=== PATIENT | male | born 1965 | race Caucasian/White ===

== ENCOUNTER 2022-05-27 08:16 | Outpatient (CLI) | payer OTHER, SELFPAY | END 2022-05-27 08:17 | disposition home or self-care (01) | LOC: OP CLINIC 08:16 | PROVIDERS: PCP Family Medicine; Visit Provider Surgery | DX: Z12.11 Encounter for screening for malignant neoplasm of colon (principal); K63.5 Polyp of colon; K57.30 Diverticulosis of large intestine without perforation or abscess without bleeding; Z80.0 Family history of malignant neoplasm of digestive organs; Z86.010 Personal history of colon polyps | CPT/HCPCS: 45385; 88305; 99153; J2250; J3010 ==

== ENCOUNTER 2023-01-14 07:13 | Outpatient (CLI) | payer OTHER, SELFPAY | END 2023-01-14 07:14 | disposition home or self-care (01) | LOC: NFLDREF 01-17 10:42 | PROVIDERS: PCP Family Medicine; Referring Provider Family Medicine; Visit Provider Family Medicine | DX: Z00.00 Encounter for general adult medical examination without abnormal findings (principal); E78.5 Hyperlipidemia, unspecified; Z12.5 Encounter for screening for malignant neoplasm of prostate | CPT/HCPCS: 80053; 80061; 84153 ==

== ENCOUNTER 2024-08-09 07:30 | Outpatient (CLI) | payer OTHER, SELFPAY | END 2024-08-09 07:31 | disposition home or self-care (01) | LOC: NFLDREF 08-11 11:32 | PROVIDERS: PCP Family Medicine; Referring Provider Family Medicine; Visit Provider Family Medicine | DX: E78.5 Hyperlipidemia, unspecified (principal) | CPT/HCPCS: 80053; 80061 ==

== ENCOUNTER 2024-08-10 08:56 | Outpatient (CLI) | payer OTHER, SELFPAY | END 2024-08-10 08:57 | disposition home or self-care (01) | PROVIDERS: PCP Family Medicine; Visit Provider Family Medicine | DX: Z00.00 Encounter for general adult medical examination without abnormal findings (principal); E78.5 Hyperlipidemia, unspecified; G62.9 Polyneuropathy, unspecified; R19.7 Diarrhea, unspecified; Z11.59 Encounter for screening for other viral diseases; Z13.1 Encounter for screening for diabetes mellitus; Z13.6 Encounter for screening for cardiovascular disorders | CPT/HCPCS: 82607; 82746; 86803; G0103 ==

== ENCOUNTER 2024-08-13 06:59 | Outpatient (CLI) | payer OTHER, SELFPAY ==
--- NOTE | 2024-08-13 07:15 | CRLHL7_ITS ---
For Patients: As a result of the Century Cures Act, medical imaging exams and procedure reports are released immediately into your electronic medical record. You may view this report before your referring provider. If you have questions, please contact your health care provider. INDICATION: FATTY LIVER COMPARISON: none TECHNIQUE: Real time zacarias scale imaging and color Doppler analysis was performed of the right upper quadrant. FINDINGS: The visualized liver is diffusely echogenic and measures 13.7 cm. The IVC and aorta are not visualized. There is no evidence of ascites. The visualized gallbladder is of normal size and there is no evidence of intraluminal stones or sludge. The gallbladder wall measures 1.8 mm in thickness. The common bile duct is of normal size and measures 5.5 mm in diameter at the level of the filiberto hepatis. The pancreas is not visualized. There is no evidence of a stone or hydronephrosis within the right kidney. Simple cysts right kidney measures 1.6 x 1.4 x 1.7 cm. The right kidney measures 10.8 cm in length. IMPRESSION: Diffuse hepatic steatosis. Incidental right renal cyst. Dictated by Aureliano Vaca MD @ 08/15/2024 10:08:41 PM (Electronically Signed)
== END 2024-08-13 07:00 | disposition home or self-care (01) ==
LOC: US 06:59
PROVIDERS: PCP Family Medicine; Visit Provider Family Medicine
DX: K76.0 Fatty (change of) liver, not elsewhere classified (principal)
CPT/HCPCS: 76705

== ENCOUNTER 2025-07-03 09:27 | Emergency (ER) | payer OTHER, SELFPAY ==
--- OUTSIDE RECORDS SUMMARY | 2025-07-03 09:29 | XMS_ITS | Clinical Summary ---
Author Organization [facility] Address [address] [place] [address]. [place] [address] Care Team Providers Care Behavior Analyst Name Role Phone Clinic, [facility] Primary Care Provider Allergies No known active allergies Medications alum & mag hydroxide-simet hicone (MYLANTA/MAALOX ) 200-200-20 MG/5ML SUSP suspension Take 30 mLs by mouth every 6 hours as needed for indigestion or heartburn 148 mL 7 Active Social History Tobacco Use Types Packs/Day Years Used Date Smoking Tobacco: Never Smokeless Tobacco: Former Alcohol Use Standard Drinks/Week Comments Yes 0 (1 standard drink = 0.6 oz pur e alcohol) rarely Adolescent Education Answer Date Record ed Getting School Help Needed Not on file 08/01 Sex and Gender Information Value Date Recorded Sex Assigned at Not on file Legal Sex Male 12:46 PM CDT Gender Identity Not on file Sexual Orientation Not on file Last Filed Vital Signs Vital Sign Reading Time Taken Comments Blood Pressure 134/89 03/04/2022 6:20 PM CDT Pulse 61 03/04/2022 6:20 PM CDT Temperature 37.2 C (98.9 F) 03/04/2022 2:28 PM CDT Respiratory Rate 15 03/04/2022 6:20 PM CDT Oxygen Saturation 97% 03/04/2022 6:20 PM CDT Inhaled Oxygen Concentration - - Weight 101.4 kg (223 lb 8.7 oz) 03/04/2022 2:28 PM CDT Height 177.8 cm (5' 10) 03/04/2022 2:28 PM CDT Body Mass Index 32.08 03/04/2022 2:28 PM CDT Plan of Treatment Not on file Insurance [employer] Care Teams Behavior Analyst Relationship Specialty Start Date End Date Clinic, [address] [address] PCP - General 05/05/17
[2025-07-03 09:38] VITALS: BP 169/82; PULSE 67; RESP 18; TEMP 36.2; O2SAT 97; BMI 30.1
[2025-07-03 09:53] VITALS: O2SAT 99
--- NOTE | 2025-07-03 09:53 | CRLHL7_ITS ---
For Patients: As a result of the Cures Act, medical imaging exams and procedure reports are released immediately into your electronic medical record. You may view this report before your referring provider. If you have questions, please contact your health care provider. INDICATION: Chest pain. TECHNIQUE: Chest 2 views. COMPARISON: None. FINDINGS: Lungs and pleural spaces: No consolidation. No pleural effusion. No pneumothorax. Cardiovasculature and mediastinum: Heart size and mediastinal contours are normal. IMPRESSION: No acute cardiopulmonary abnormality. Dictated by Lukasz Banegas MD @ 07/03/2025 10:21:02 AM (Electronically Signed)
--- NOTE | 2025-07-03 09:59 | ED_ITS ---
HPI - General Adult General Chief complaint: Chest Pain Stated complaint: chest pain Time Seen by Provider: 07/03/25 09:29 Source: patient Mode of arrival: ambulatory Limitations: no limitations History of Present Illness HPI narrative: 59-year-old male presenting today with chest pain that started approximately 4 hours ago. Pain is located on the right chest. He feels only takes a deep breath. He feels it radiate into the center of his back when he takes a deep inspiration. He does not feel short of breath, dizzy or lightheaded. He did paint a book shelf yesterday. Moving does not really make it worse. He states that he felt chills when he 1st arrived here but that has passed. He has not been coughing. No recent travel or surgeries. He was hoping it would go away but it has persisted. He took an acid and this is not help. He had a bowel movement in this did not help either. Related Data Previous Rx's ?Medication ?Instructions ?Recorded gabapentin 100 mg capsule 200 - 300 mg (2 - 3 x 100 mg ) PO 08/10/24 QHS #270 caps nicotine (polacrilex) 2 mg buccal 2 mg buccal Q8H PRN nicotine 08/10/24 lozenge cravings #81 ea Allergies Allergy/AdvReac Type Severity Reaction Status Date / Time No Known Allergies Allergy Verified 07/03/25 09:38 Review of Systems Status of ROS: Reports: 10 or more systems reviewed and unremarkable except as noted in History and below PFSH PFS Medical History Routine medical exam (10/20/14) ?Z00.00 - Encounter for general adult medical examination without abnormal findings (ICD-10) Nicotine dependence (07/27/13) ?F17.200 - Nicotine dependence, unspecified, uncomplicated (ICD-10) Surgical History History of hernia repair (07/27/13) ?Z98.890 - Other specified postprocedural states (ICD-10) ?Z87.19 - Personal history of other diseases of the digestive system (ICD-10) Family History Mother Acute respiratory failure Coronary artery disease Rheumatoid arthritis Father Colon cancer Social History Narrative: Chewing tobacco use Has 3 children What is your current living situation?: I presently have a place to live Problems where you live: no known problems In the past 12 months, utilities in danger of being shut off: no In past 12 months, lack of transportation kept you from medical appts, meetings, work, or getting things needed for daily living: no In the past 12 mos, have been you worried that your food would run out before you had money to buy more?: never true In the past 12 mos, the food you bought just didn't last and you didn't have money to buy more?: never true Smoking Status: Former smoker Caffeine: Yes How often does anyone, including family, friends and others, physically hurt you : never How often does anyone, including family, friends and others, insult or talk down to you: never How often does anyone, including family, friends and others, threaten you with harm: never How often does anyone, including family, friends and others, scream or curse at you: never Exam Narrative: Exam Narrative: Well-nourished well-developed patient in no acute distress. Alert and oriented. Answers questions appropriately. Mood and affect are appropriate. Thoughts are goal oriented and rational. No tangential or magical thinking noted. Patient speaks in full sentences without needing to catch his breath. Patient is not appear ill or toxic, does not appear uncomfortable. HEENT: Normocephalic atraumatic. Pupils are equally round reactive to light. Extraocular muscles are intact. Conjunctivae are moist without any icterus noted. Moist mucous membranes. Neck is soft without any lymphadenopathy. Cardiovascular: Heart is regular rate and rhythm S1 and S2 are present without any murmurs. Lungs: Clear to auscultation bilaterally no wheezes rhonchi or rales are appreciated. Patient takes deep breaths without any significant discomfort. I cannot reproduce his pain with palpation. Abdomen: Soft and nontender nondistended with normal bowel sounds. Extremities: Bilateral lower extremities are without edema. Normal DP and PT pulses. Skin: Well perfused without any obvious rashes. Const: Vital Signs, click to edit/add: Vital Signs - 24 hr 07/03/25 09:38 Temperature 97.1 F L Pulse Rate [Pulse Oximeter] 67 Respiratory Rate 18 Blood Pressure [Ri t Upper Arm] 169/82 H Pulse Oximetry 97 Oxygen Delivery Me thod Room Air Course Course ED Course: Patient received aspirin. EKG, read by me, shows normal sinus rhythm with a pulse 69. Normal QRS, QTC and NH intervals. Differential diagnosis at this time is very broad and includes chest wall discomfort, acute coronary syndrome, PE, aortic dissection, pleurisy, pneumothorax. Chest x-ray, read by me, does not show any acute pathology. Blood work unremarkable. Repeat cardiac enzymes unchanged, repeat EKG unchanged. CPAP aortic dissection protocol does not reveal any significant abnormalities. Shows an enlarged prostate. Vital Signs Vital signs: Initial Vital Signs Temperature 97.1 F L 07/03/25 09:38 Temperature Source Temporal Artery Scan 07/03/25 09:38 Pulse Rate 67 07/03/25 09:38 Respiratory Rate 18 07/03/25 09:38 Blood Pressure 169/82 H 07/03/25 09:38 Blood Pressure Mean 111 H 07/03/25 09:38 Pulse Oximetry 97 07/03/25 09:38 Oxygen Delivery Method Room Air 07/03/25 09:38 Vital Signs Temperature 97.1 F L 07/03/25 09:38 Pulse Rate 67 07/03/25 09:38 Respiratory Rate 18 07/03/25 09:38 Blood Pressure 169/82 H 07/03/25 09:38 Pulse Oximetry 97 07/03/25 09:38 Oxygen Delivery Method Room Air 07/03/25 09:38 Temperature 97.1 F L 07/03/25 09:38 Pulse Rate 67 07/03/25 09:38 Respiratory Rate 18 07/03/25 09:38 Blood Pressure 169/82 H 07/03/25 09:38 Pulse Oximetry 97 07/03/25 09:38 Oxygen Delivery Method Room Air 07/03/25 09:38 Medications Administered Medications: Discontinued Medications Generic Name Dose Route Start Last Admin Trade Name Freq PRN Reason Stop Dose Admin Aspirin 324 mg 07/03/25 09:53 07/03/25 10:21 Aspirin 81 Mg Tab.Chew PO 07/03/25 09:54 324 mg ONCE ONE Administration Medical Decision Making MDM Narrative Medical decision making narrative: 59-year-old male with atypical chest pain. Symptoms not consistent with acute coronary syndrome. Workup did not reveal any life-threatening etiology including PE, aortic dissection, ACS, pneumothorax, pericarditis. Discuss pleurisy with a potential cause, as well as chest wall pain. Lab Data Lab results reviewed: Yes I reviewed the patient's lab results Labs: Lab Results 07/03/25 07/03/25 07/03/25 Range/Units 09:53 10:03 11:55 WBC 4.89 (4.50-11.00) K/uL RBC 5.31 (4.30-5.90) m/uL Hgb 17.3 (13.5-17.5) gm/dL Hct 51.4 (37.0-53.0) % MCV 97 (80-100) fL MCH 33 (26-34) pg MCHC 34 (32-36) gm/dL RDW Coeff of Felicia 12.6 (11.5-15.5) % Plt Count 165 (140-440) K/uL Neut % (Auto) 73.4 H (42.0-72.0) % Lymph % (Auto) 17.2 L (20-44) % [place] % (Auto) 7.6 (0.0-11.0) % Eos % (Auto) 1.0 (0.0-7.0) % Baso % (Auto) 0.4 (0.0-3.0) % Neut # (Auto) 3.60 (1.7-7.0) K/uL Lymph # (Auto) 0.80 L (0.90-2.90) K/uL [place] # (Auto) 0.40 (0.00-0.90) K/UL Eos # (Auto) 0.05 (0.00-0.50) K/uL Baso # (Auto) 0.02 (0.00-0.30) K/uL Abs Immat Gran (auto) 0.02 (0.00-0.30) K/uL Imm/Tot Granulo (auto) 0.4 % D-Dimer Quant (PE/DVT) < 0.27 (0.00-0.50) ug/ml Sodium 138 (135-149) mmol/L Potassium 4.2 (3.6-5.1) mmol/L Chloride 102 (96-114) mmol/L Carbon Dioxide 30 (20-32) mmol/L Anion Gap 6 L (7-15) mEq/L BUN 14 (7-30) mg/dL Creatinine 1.0 (0.5-1.5) mg/dL Estimated Creat Clear 83.14 Estimated GFR 87 ml/min Glucose 97 (60-115) mg/dL Lactate 1.5 (0.5-1.9) mmol/L Calcium 9.7 (8.4-10.6) mg/dL Total Bilirubin 1.1 (0.1-1.5) mg/dL Direct Bilirubin 0.2 (0.0-0.5) mg/dL AST 31 (12-35) U/L ALT 26 (4-50) U/L Alkaline Phosphatase 66 (40-150) U/L Troponin I < 0.01 (0.01-0.04) ng/mL C-Reactive Protein < 0.5 L (0.5-1.0) mg/dL Total Protein 6.9 (6.0-8.3) g/dL Albumin 4.2 (3.3-5.0) g/dL Lipase 84 (23-300) U/L POC Troponin I 0.00 L 0.00 L (0.01-0.04) ng/ml Imaging Data Chest x-ray: Attestation: I have reviewed the pertinent imaging results. Radiologist's impression: TECHNIQUE: Chest 2 views. COMPARISON: None. FINDINGS: Lungs and pleural spaces: No consolidation. No pleural effusion. No pneumothorax. Cardiovasculature and mediastinum: Heart size and mediastinal contours are normal. IMPRESSION: No acute cardiopulmonary abnormality. CT Chest/Ab/Pelvis: Attestation: I have reviewed the pertinent imaging results. Radiologist's impression: TECHNIQUE: CT chest without contrast and CT chest, abdomen and pelvis acquired with 95 cc Omnipaque 350 IV contrast, dissection protocol. Coronal and MIP reconstructions were performed. COMPARISON: None. FINDINGS: VASCULATURE: Motion within the aortic root limits evaluation. The thoracic aorta is nonaneurysmal. No gross evidence of dissection. Patent three-vessel arch without significant stenosis. No large central pulmonary embolism. The abdominal aorta is normal in caliber. No aneurysm or dissection. The celiac, superior mesenteric, renal and inferior mesenteric arteries are patent without significant stenosis. The iliac arteries are patent without significant stenosis. The visualized femoral arteries are unremarkable. CHEST: No consolidation. Minimal bibasilar ground-glass, likely atelectasis or scarring. No pulmonary edema. No pleural effusion or pneumothorax. No anterior mediastinal hematoma is seen. No mediastinal or hilar lymphadenopathy. The heart is prominent. Noncontrast images demonstrate no significant coronary calcification. No significant pericardial effusion. No axillary lymphadenopathy. No chest wall mass is seen. Bone windows demonstrate no suspicious lytic or sclerotic lesion. No fracture. ABDOMEN AND PELVIS: There may be mild hepatic steatosis. No definite liver lesion is seen. The gallbladder is distended without CT evidence of acute cholecystitis. No biliary ductal dilatation. The spleen is normal in size and heterogeneous, likely due to phase of contrast timing. The pancreas is unremarkable. The adrenal glands are unremarkable. The kidneys are without hydronephrosis or significant perinephric stranding. A 2 centimeter hyperattenuating exophytic right renal mass is seen which likely represents a small cyst. Evidence of minimal calcification along the periphery. Urinary bladder is partially distended. There is indeterminate moderate anterior urinary bladder wall thickening. Mass effect on the posterior bladder wall from a prominent prostate. Indeterminate thickening of the decompressed rectosigmoid colon, likely due to underdistention. No surrounding inflammatory fat stranding. Colonic diverticulosis greatest within the sigmoid colon. No CT evidence of acute diverticulitis. A prominent appendix is seen containing normal stool measuring 10 millimeters. There is tapering to the tip of the appendix. No significant periappendiceal stranding to suggest acute appendicitis. The small bowel is unremarkable without evidence of a small-bowel obstruction. The stomach is partially distended. Narrowing of the gastric outlet is likely physiologic. No free air. No ascites. No organized drainable fluid collection. No lymphadenopathy is seen. Small inguinal hernias are noted, right greater than left. Possible prior left inguinal hernia repair with scarring. IMPRESSION: 1. No gross CT finding to explain the patient`s symptoms. Motion within the aortic root limits evaluation. No gross CT evidence of acute aortic syndrome. 2. Indeterminate urinary bladder wall thickening with mass effect on the posterior bladder wall from a prominent prostate. Recommend correlation with urinalysis, urine cytology and PSA. Discharge Plan Discharge Clinical Impression: Atypical chest pain, Enlarged prostate Patient Disposition: Home, Self-Care Condition: Stable Additional Instructions: Follow-up with primary care as needed. Can try heating pad to the chest wall for 20 minutes at a time every couple of hours. Do not apply heat directly to the skin. Also recommend Tylenol as needed/as directed for discomfort. Prescriptions: No Action gabapentin 100 mg capsule 200 - 300 mg PO QHS Qty: 270 3RF nicotine (polacrilex) 2 mg lozenge 2 mg buccal Q8H PRN (Reason: nicotine cravings) Qty: 81 3RF Follow Up/Referrals: Christina Graham MD [Primary Care Provider, Family Practice] Stand Alone Forms: [employer] Info Instructions
[2025-07-03 10:10] LABS: Lactate* 1.5 mmol/L (0.5-1.9)
[2025-07-03 10:13] LABS: Hematocrit 51.4 % (37.0-53.0); Hemoglobin* 17.3 gm/dL (13.5-17.5); Immature Granulocytes Abs Auto 0.02 K/uL (0.00-0.30); Immature Granulocytes Pct Auto 0.4 %; Mean Corpuscular HGB Conc 34 gm/dL (32-36); Mean Corpuscular Hemoglobin 33 pg (26-34); Mean Corpuscular Volume 97 fL (80-100); RDW Coefficient of Variation % 12.6 % (11.5-15.5); Red Blood Count 5.31 m/uL (4.30-5.90); White Blood Count* 4.89 K/uL (4.50-11.00)
[2025-07-03 10:18] LABS: Troponin, Point-of-Care* 0.00 ng/ml (0.01-0.04)
[2025-07-03] MEDS: ASPIRIN 81 MG TAB.CHEW 324 MG PO (10:21)
[2025-07-03 10:32] LABS: Lymphocytes Absolute Auto 0.80 K/uL (0.90-2.90); Slide Review Reflex No
[2025-07-03 10:36] LABS: Albumin* 4.2 g/dL (3.3-5.0); Chloride* 102 mmol/L (96-114); Potassium* 4.2 mmol/L (3.6-5.1); Sodium* 138 mmol/L (135-149)
[2025-07-03 10:38] LABS: Blood Urea Nitrogen* 14 mg/dL (7-30); Creatinine* 1.0 mg/dL (0.5-1.5); Est. Creatinine Clearance* 83.14; Estimated Glomerular Filt Rate 87 ml/min
[2025-07-03 10:39] LABS: Alanine Aminotransferase* 26 U/L (4-50); Alkaline Phosphatase* 66 U/L (40-150); Anion Gap 6 mEq/L (7-15); Aspartate Amino Transferase* 31 U/L (12-35); Bilirubin Direct* 0.2 mg/dL (0.0-0.5); Bilirubin Total* 1.1 mg/dL (0.1-1.5); Calcium* 9.7 mg/dL (8.4-10.6); Carbon Dioxide* 30 mmol/L (20-32); Glucose* 97 mg/dL (60-115); Total Protein* 6.9 g/dL (6.0-8.3)
[2025-07-03 11:10] LABS: D Dimer Quantitative* < 0.27 ug/ml (0.00-0.50)
--- NOTE | 2025-07-03 11:14 | CRLHL7_ITS ---
For Patients: As a result of the 21st Century Cures Act, medical imaging exams and procedure reports are released immediately into your electronic medical record. You may view this report before your referring provider. If you have questions, please contact your health care provider. INDICATION: Chest pain. TECHNIQUE: CT chest without contrast and CT chest, abdomen and pelvis acquired with 95 cc Omnipaque 350 IV contrast, dissection protocol. Coronal and MIP reconstructions were performed. COMPARISON: None. FINDINGS: VASCULATURE: Motion within the aortic root limits evaluation. The thoracic aorta is nonaneurysmal. No gross evidence of dissection. Patent three-vessel arch without significant stenosis. No large central pulmonary embolism. The abdominal aorta is normal in caliber. No aneurysm or dissection. The celiac, superior mesenteric, renal and inferior mesenteric arteries are patent without significant stenosis. The iliac arteries are patent without significant stenosis. The visualized femoral arteries are unremarkable. CHEST: No consolidation. Minimal bibasilar ground-glass, likely atelectasis or scarring. No pulmonary edema. No pleural effusion or pneumothorax. No anterior mediastinal hematoma is seen. No mediastinal or hilar lymphadenopathy. The heart is prominent. Noncontrast images demonstrate no significant coronary calcification. No significant pericardial effusion. No axillary lymphadenopathy. No chest wall mass is seen. Bone windows demonstrate no suspicious lytic or sclerotic lesion. No fracture. ABDOMEN AND PELVIS: There may be mild hepatic steatosis. No definite liver lesion is seen. The gallbladder is distended without CT evidence of acute cholecystitis. No biliary ductal dilatation. The spleen is normal in size and heterogeneous, likely due to phase of contrast timing. The pancreas is unremarkable. The adrenal glands are unremarkable. The kidneys are without hydronephrosis or significant perinephric stranding. A 2 centimeter hyperattenuating exophytic right renal mass is seen which likely represents a small cyst. Evidence of minimal calcification along the periphery. Urinary bladder is partially distended. There is indeterminate moderate anterior urinary bladder wall thickening. Mass effect on the posterior bladder wall from a prominent prostate. Indeterminate thickening of the decompressed rectosigmoid colon, likely due to underdistention. No surrounding inflammatory fat stranding. Colonic diverticulosis greatest within the sigmoid colon. No CT evidence of acute diverticulitis. A prominent appendix is seen containing normal stool measuring 10 millimeters. There is tapering to the tip of the appendix. No significant periappendiceal stranding to suggest acute appendicitis. The small bowel is unremarkable without evidence of a small-bowel obstruction. The stomach is partially distended. Narrowing of the gastric outlet is likely physiologic. No free air. No ascites. No organized drainable fluid collection. No lymphadenopathy is seen. Small inguinal hernias are noted, right greater than left. Possible prior left inguinal hernia repair with scarring. IMPRESSION: 1. No gross CT finding to explain the patient`s symptoms. Motion within the aortic root limits evaluation. No gross CT evidence of acute aortic syndrome. 2. Indeterminate urinary bladder wall thickening with mass effect on the posterior bladder wall from a prominent prostate. Recommend correlation with urinalysis, urine cytology and PSA. Please note that all CT scans at this facility use dose modulation, iterative reconstruction, and/or weight-based dosing when appropriate to reduce radiation dose to as low as reasonably achievable. Dictated by Lukasz Banegas MD @ 07/03/2025 12:02:15 PM (Electronically Signed)
[2025-07-03 12:08] LABS: Troponin, Point-of-Care* 0.00 ng/ml (0.01-0.04)
== END 2025-07-03 12:38 | disposition home or self-care (01) ==
PROVIDERS: Emergency Provider Family Medicine; PCP Family Medicine
DX: R07.9 Chest pain, unspecified (principal); N40.0 Benign prostatic hyperplasia without lower urinary tract symptoms
CPT/HCPCS: 36415; 71046; 71275; 74174; 80048; 80076; 83605; 83690; 84484; 85025; 85379; 86140; 93005; 94761; 99284; 99285; A9270; Q9967

== ENCOUNTER 2025-07-27 07:27 | Outpatient (CLI) | payer OTHER, SELFPAY | END 2025-07-27 07:28 | disposition home or self-care (01) | PROVIDERS: PCP Family Medicine; Visit Provider Family Medicine | DX: R25.1 Tremor, unspecified (principal); G62.9 Polyneuropathy, unspecified; R07.9 Chest pain, unspecified; F17.200 Nicotine dependence, unspecified, uncomplicated; Z13.1 Encounter for screening for diabetes mellitus | CPT/HCPCS: 80053; 82607; 83735; 84443 ==